=== PATIENT | male | born 1995 | race Two or more races ===

== ENCOUNTER 2020-03-18 06:53 | Emergency (ER) | payer MEDICAID ==
[~2020-03-18] VITALS: Ht 177.8 cm; Wt 107.0 kg
[2020-03-18] MEDS ORDERED: CEFTRIAXONE SODIUM 1 G/VIAL IM ONE (08:00)
[2020-03-18] MEDS ORDERED: KETOROLAC 60MG/2ML VIAL IM ONE (08:00)
[2020-03-18 08:55] VITALS: BP 131/74
== END 2020-03-18 09:07 | disposition home or self-care (01) ==
LOC: ER 06:53
DX: L03.317 Cellulitis of buttock (principal)
CPT/HCPCS: 96372; 99284; J0696; J1885

== ENCOUNTER 2020-03-22 12:00 | Inpatient (IN) | payer MEDICAID ==
[~2020-03-22] VITALS: Ht 177.8 cm; Wt 107.0 kg
[2020-03-22] MEDS ORDERED: IBUPROFEN 400MG TABLET PO ONE (12:45)
[2020-03-22 13:36] LABS: BASOPHILS % 0.6 % (0.0-2.0); EOSINOPHILS % 2.8 % (0.0-5.0); HEMATOCRIT. 36.6 % (42.0-52.0); HEMOGLOBIN. 12.7 g/dL (14.0-18.0); LYMPHOCYTES % 16.3 % (20.0-50.0); MEAN CORPUSCULAR HEMOGLOBIN 30.8 pg (28.0-32.0); MEAN CORPUSCULAR VOLUME 88.9 fL (80.0-94.0); MEAN PLATELET VOLUME 8.4 fl (7.4-10.4); NEUTROPHILS % 70.3 % (40.0-76.0); PLATELET 268 x1000/uL (130-400); RED BLOOD CELL COUNT 4.12 mill/uL (4.7-6.1); RED CELL DISTRIBUTION WIDTH 12.8 % (11.6-14.6)
[2020-03-22 13:41] LABS: CHLORIDE 105 mEq/L (98-107)
[2020-03-22 13:49] LABS: INR 1.2; PROTHROMBIN TIME 12.5 sec (9.6-11.0)
[2020-03-22] MEDS ORDERED: LIDOCAINE HCL/PF 1% 10 MG/ML 5ML VIAL IJ ONE (14:00)
[2020-03-22] MEDS ORDERED: BACITRACIN ZINC OINT UDPKT TOP ONE (14:00)
[2020-03-22] MEDS ORDERED: CEFTRIAXONE 1 G PREMIX 50 ML IV ONE (14:00)
[2020-03-22 14:02] LABS: CLARITY URINE CLEAR (CLEAR); COLOR URINE YELLOW (YELLOW); KETONES URINE TRACE (NEGATIVE); LEUKOCYTE ESTERASE URINE NEGATIVE (NEGATIVE); NITRITE URINE NEGATIVE (NEGATIVE); OCCULT BLOOD URINE NEGATIVE (NEGATIVE); PH URINE 5.5 (4.5-8.0); PROTEIN URINE NEGATIVE (NEGATIVE)
[2020-03-22] MEDS ORDERED: MORPHINE SULFATE 2 MG/ML CPJ (NOT FOR IM USE) IV PRN (18:00)
[2020-03-22] MEDS ORDERED: ONDANSETRON HCL 4MG/2ML INJ IV PRN (18:00)
[2020-03-22] MEDS ORDERED: ACETAMINOPHEN 325MG TABLET PO PRN (18:00)
[2020-03-22] MEDS ORDERED: CLONIDINE 0.1MG TABLET PO PRN (18:00)
[2020-03-22] MEDS ORDERED: DIPHENHYDRAMINE 50MG/ML VIAL IV PRN (18:00)
[2020-03-22] MEDS ORDERED: IPRATROPIUM/ALBUTEROL 0.5-3(2.5)MG/3ML NEB HHN PRN (18:00)
[2020-03-22] MEDS ORDERED: VANCOMYCIN 1 G PREMIX 200 ML IV NR (18:30)
[2020-03-22] MEDS ORDERED: PIPERACILLIN/TAZ 3.375G PREMIX 50 ML IV SCH (18:30)
[2020-03-22 21:50] VITALS: BP 123/66
[2020-03-23] VITALS: BP 123/66
[2020-03-23] MEDS ORDERED: HYDR-3281 PO (03:53)
[2020-03-23] MEDS ORDERED: KEFLL11 PO (03:55)
[2020-03-23 04:00] VITALS: BP 122/60
[2020-03-23] MEDS: VANCOMYCIN 750 MG PREMIX 150 ML IV SCH ×2 (04:08→12:00)
[2020-03-23] MEDS: PIPERACILLIN/TAZOBACTAM 3.375 G in DEXT 5% WATER 100 ML IV SCH ×3 (06:07→18:00)
[2020-03-23 06:35] LABS: BASOPHILS % 0.6 % (0.0-2.0); EOSINOPHILS % 4.3 % (0.0-5.0); HEMATOCRIT. 37.3 % (42.0-52.0); HEMOGLOBIN. 13.3 g/dL (14.0-18.0); LYMPHOCYTES % 16.8 % (20.0-50.0); MEAN CORPUSCULAR VOLUME 89.7 fL (80.0-94.0); MEAN PLATELET VOLUME 8.9 fl (7.4-10.4); MONOCYTES % 8.7 % (2.0-8.0); NEUTROPHILS % 69.6 % (40.0-76.0); PLATELET 272 x1000/uL (130-400); RED BLOOD CELL COUNT 4.16 mill/uL (4.7-6.1); RED CELL DISTRIBUTION WIDTH 12.7 % (11.6-14.6)
[2020-03-23 06:36] LABS: CHLORIDE 105 mEq/L (98-107)
[2020-03-23 06:44] LABS: LDL CHOLESTEROL 116 mg/dL (5-100)
[2020-03-23 06:45] LABS: HDL CHOLESTEROL 32 mg/dL (40-59)
[2020-03-23 08:00] VITALS: BP 99/40
[2020-03-23 12:00] VITALS: BP 100/21
[2020-03-23 16:00] VITALS: BP 114/41
[2020-03-23 19:46] VITALS: BP 134/75
== END 2020-03-23 21:02 | disposition home or self-care (01) | DRG 383 ==
LOC: ER 12:00 → EDBEDREQ 16:53 → EDBEDREQTM 16:53 → ENRESERV 20:26 → 6EST 21:55
PROVIDERS: ADMIT Internal Medicine; ATTEND Internal Medicine
PROC: 0Y900ZZ Drainage of Right Buttock, Open Approach (ICD-10-PCS; principal; 2020-03-22)
DX: L02.31 Cutaneous abscess of buttock (principal); Z79.899 Other long term (current) drug therapy
CPT/HCPCS: 36415; 74176; 80053; 80061; 81003; 84443; 85025; 93970; 99285; J0696; J2543; J3370; J3490; J7060